=== PATIENT | female | born 1945 | race Caucasian/White ===

== ENCOUNTER 2017-09-16 15:14 | Inpatient (IN) | payer OTHER, MEDICARE ==
[2017-09-16] MEDS ORDERED: NS 500 ML IV ONE (16:13)
[2017-09-16] MEDS ORDERED: ACETAMINOPHEN 325 MG TAB PO ONE (16:17)
--- NOTE | 2017-09-16 16:21 | EDPHY ---
H & P Time Seen by Provider: 09/16/17 15:59 HPI/ROS: CHIEF COMPLAINT: Chills HISTORY OF PRESENT ILLNESS: Patient is a 72-year-old female with a history of metastatic breast cancer who presents to the emergency department with acute onset of chills. The patient states that she had a remote history of breast cancer which was treated with chemotherapy. Her cancer has returned metastasized to her spine. She recently had a fusion of T1 through T5 at [facility]. She has undergone radiation therapy and is now on hormone therapy. She is not currently undergoing chemotherapy. Her oncologist is Dr. Heart and her spine surgeon is Dr. Alvarado. Patient was in her normal state of health earlier today. However, approximately 1 hr prior to arrival she developed sudden onset of diffuse chills. She felt cold. She denies any recent cold. She has had no cough or shortness of breath. She denies abdominal pain. No nausea, vomiting or diarrhea. The patient states she has had 3 recent UTIs but no dysuria or hematuria recently. REVIEW OF SYSTEMS: My complete review of systems is negative except as mentioned in the HPI. Past Medical/Surgical History: Includes metastatic breast cancer, attention deficit hyperactivity disorder Past surgical history: Hip replacement, spinal fusion Social history: The patient is . She does not smoke. She lives in [place]. Smoking Status: Never smoked Physical Exam: Vitals noted. Tachycardic. GENERAL: Well-appearing, in no acute distress, alert. HEENT: Eyes normal to inspection, normal pharynx, no signs of dehydration. NECK: No thyromegaly, no lymphadenopathy, supple. RESPIRATORY: Clear to auscultation bilaterally, no rales, rhonchi or wheezing. CVS: Regular rate and rhythm, no rubs, murmurs, or gallops. ABDOMEN: Soft, nontender, nondistended, no organomegaly. BACK: Normal to inspection, no CVA tenderness. SKIN: Normal color, no rash, warm, dry. No pallor. EXTREMITIES: No pedal edema, no calf tenderness, no Homans sign or cords, no joint swelling. NEURO/PSYCH: Alert and oriented x3, normal mood and affect, normal motor sensory exam. No obvious cranial nerve deficit. Constitutional: Initial Vital Signs Temperature (C) 37.9 C 09/16/17 15:35 Heart Rate 125 H 09/16/17 15:35 Respiratory Rate 20 09/16/17 15:35 Blood Pressure 151/86 H 09/16/17 15:35 O2 Sat (%) 97 09/16/17 15:35 O2 Delivery Mode Room Air Allergies/Adverse Reactions: nitrofurantoin [From Macrobid] Allergy (Verified 09/16/17 15:33) Home Medications: Medication Instructions Recorded Ambien 09/16/17 Amitriptyline HCl 09/16/17 Faslodex 09/16/17 Levothyroxine 09/16/17 Verzenio 09/16/17 Zometa 09/16/17 Medical Decision Making - Diagnostics Imaging Results: Imaging Impressions Chest X-Ray 09/16/17 16:13 Impression: No focal acute cardiopulmonary process. ED Course/Re-evaluation: In the emergency department I discussed possible etiologies with the patient and family. I answered all her questions. IV was placed. Laboratory studies including blood cultures were ordered. Chest x-ray and EKG were ordered. The patient was given Tylenol 650 mg orally. Reviewed the patient's laboratory studies. White count was low at 1. Her chemistry panel is unremarkable. Urine was positive. Blood cultures and urine culture are pending. Patient was given Rocephin 1 g IV. I discussed the case with the patient answered all her questions. I discussed the case with Dr. Reddy from the hospitalist service. He will admit the patient. Differential Diagnosis: My differential includes but is not limited to bacteremia, sepsis, pneumonia, urinary tract infection, pyelonephritis, epidural abscess, postsurgical infection - Data Points Laboratory Results: Laboratory Results 09/16/17 16:15 09/16/17 16:15 09/16/17 09/16/17 09/16/17 16:55 16:15 16:15 WBC 1.00 10^3/uL L 10^3/uL (3.80-9.50) RBC 3.19 10^6/uL L 10^6/uL (4.18-5.33) Hgb 9.4 g/dL L g/dL (12.6-16.3) Hct 27.9 % L % (38.0-47.0) MCV 87.5 fL fL (81.5-99.8) MCH 29.5 pg pg (27.9-34.1) MCHC 33.7 g/dL g/dL (32.4-36.7) RDW 18.1 % H % (11.5-15.2) Plt Count 103 10^3/uL L 10^3/uL (150-400) MPV 10.1 fL fL (8.7-11.7) Neut % (Auto) Not Reported Lymph % (Auto) Not Reported Eaton % (Auto) Not Reported Eos % (Auto) Not Reported Baso % (Auto) Not Reported Nucleat RBC Rel Count 0.0 % % (0.0-0.2) Absolute Neuts (auto) Not Reported Absolute Lymphs (auto) Not Reported Absolute Monos (auto) Not Reported Absolute Eos (auto) Not Reported Absolute Basos (auto) Not Reported Absolute Nucleated RBC 0.00 10^3/uL 10^3/uL (0-0.01) Immature Gran % Not Reported Seg Neutrophils % 46 % % Band Neutrophils % 25 % % Lymphocytes % 24 % % Monocytes % 3 % % Eosinophils % 1 % % Basophils % 1 % % Immature Gran # Not Reported Absolute Seg Neuts 0.46 10^/uL L 10^/uL (1.70-6.50) Absolute Band Neuts 0.25 10^3/uL 10^3/uL (0.00-0.70) Absolute Lymphocytes 0.24 10^3/uL L 10^3/uL (1.00-3.00) Absolute Monocytes 0.03 10^3/uL L 10^3/uL (0.30-0.80) Absolute Eosinophils 0.01 10^3/uL L 10^3/uL (0.03-0.40) Absolute Basophils 0.01 10^3/uL L 10^3/uL (0.02-0.10) Platelet Estimate DECREASED L (ADEQ) Microcytic Cells 1+ H Tear Drop Cells 1+ H Oval Macrocytes 1+ H Elliptocytes 1+ H PT INR APTT VBG Lactic Acid Sodium 134 mEq/L L mEq/L (135-145) Potassium 4.2 mEq/L mEq/L (3.5-5.2) Chloride 105 mEq/L mEq/L (97-110) Carbon Dioxide 18 mEq/l L mEq/l (22-31) Anion Gap 11 mEq/L mEq/L (8-16) BUN 11 mg/dL mg/dL (7-23) Creatinine 0.6 mg/dL mg/dL (0.6-1.0) Estimated GFR > 60 Glucose 98 mg/dL mg/dL (70-100) Calcium 9.2 mg/dL mg/dL (8.5-10.4) Total Bilirubin 0.6 mg/dL mg/dL (0.1-1.4) Conjugated Bilirubin 0.3 mg/dL mg/dL (0.0-0.5) Unconjugated Bilirubin 0.3 mg/dL mg/dL (0.0-1.1) AST 30 IU/L IU/L (14-46) ALT 25 IU/L IU/L (9-52) Alkaline Phosphatase 53 IU/L IU/L (38-126) Total Protein 6.3 g/dL g/dL (6.3-8.2) Albumin 3.8 g/dL g/dL (3.5-5.0) Lipase 37 IU/L IU/L (23-300) Urine Color PALE YELLOW Urine Appearance HAZY Urine pH 8.0 H (5.0-7.5) Ur Specific Lem[place] 1.008 (1.002-1.030) Urine Protein NEGATIVE (NEGATIVE) Urine Ketones NEGATIVE (NEGATIVE) Urine Blood 1+ H (NEGATIVE) Urine Nitrate NEGATIVE (NEGATIVE) Urine Bilirubin NEGATIVE (NEGATIVE) Urine Urobilinogen NEGATIVE EU EU (0.2-1.0) Ur Leukocyte Esterase 2+ H (NEGATIVE) Urine RBC 10-15 /hpf H /hpf (0-3) Urine WBC 50-182 /hpf H /hpf (0-3) Ur Epithelial Cells NONE SEEN /lpf /lpf (NONE-1+) Urine Bacteria 3+ /hpf H /hpf (NONE SEEN) Urine Mucus TRACE /lpf /lpf (NONE-1+) Urine Glucose NEGATIVE (NEGATIVE) 09/16/17 09/16/17 16:15 16:13 WBC RBC Hgb Hct MCV MCH MCHC RDW Plt Count MPV Neut % (Auto) Lymph % (Auto) Eaton % (Auto) Eos % (Auto) Baso % (Auto) Nucleat RBC Rel Count Absolute Neuts (auto) Absolute Lymphs (auto) Absolute Monos (auto) Absolute Eos (auto) Absolute Basos (auto) Absolute Nucleated RBC Immature Gran % Seg Neutrophils % Band Neutrophils % Lymphocytes % Monocytes % Eosinophils % Basophils % Immature Gran # Absolute Seg Neuts Absolute Band Neuts Absolute Lymphocytes Absolute Monocytes Absolute Eosinophils Absolute Basophils Platelet Estimate Microcytic Cells Tear Drop Cells Oval Macrocytes Elliptocytes PT 14.1 SEC SEC (12.0-15.0) INR 1.07 (0.83-1.16) APTT 21.7 SEC L SEC (23.0-38.0) VBG Lactic Acid 1.3 mmol/L mmol/L (0.7-2.1) Sodium Potassium Chloride Carbon Dioxide Anion Gap BUN Creatinine Estimated GFR Glucose Calcium Total Bilirubin Conjugated Bilirubin Unconjugated Bilirubin AST ALT Alkaline Phosphatase Total Protein Albumin Lipase Urine Color Urine Appearance Urine pH Ur Specific Lemont Urine Protein Urine Ketones Urine Blood Urine Nitrate Urine Bilirubin Urine Urobilinogen Ur Leukocyte Esterase Urine RBC Urine WBC Ur Epithelial Cells Urine Bacteria Urine Mucus Urine Glucose Medications Given: Discontinued Medications Acetaminophen (Tylenol) 650 mg PO EDNOW ONE Stop: 09/16/17 16:18 Last Admin: 09/16/17 16:22 Dose: 650 mg Sodium Chloride (Ns) 500 mls @ 0 mls/hr IV EDNOW ONE; Wide Open PRN Reason: Protocol Stop: 09/16/17 16:14 Last Admin: 09/16/17 16:17 Dose: 500 mls Departure - Departure Disposition: [facility] Acute Clinical Impression: Chills UTI (urinary tract infection) Qualifiers: Urinary tract infection type: acute cystitis Hematuria presence: with hematuria Qualified Code(s): N30.01 - Acute cystitis with hematuria Leukopenia Qualifiers: Leukopenia type: unspecified Qualified Code(s): D72.819 - Decreased white blood cell count, unspecified Condition: Good Referrals: NONE *PRIMARY CARE P,. [Primary Care Provider] - As per Instructions
[2017-09-16 16:30] LABS: PLATELET COUNT 103 10^3/uL (150-400)
[2017-09-16 16:50] LABS: INR 1.07 (0.83-1.16); PROTIME(PATIENT) 14.1 SEC (12.0-15.0)
[2017-09-16] MEDS ORDERED: ONDANSETRON DISINTEGRATING 4 MG TAB PO PRN (17:55)
[2017-09-16] MEDS ORDERED: ONDANSETRON 4 MG/2 ML VIAL IVP PRN (17:55)
[2017-09-16] MEDS ORDERED: TEMAZEPAM 15 MG CAP PO PRN (17:55)
[2017-09-16] MEDS ORDERED: ACETAMINOPHEN 325 MG TAB PO PRN (17:55)
[2017-09-16] MEDS ORDERED: NS 1,000 ML IV SCH (18:00)
--- NOTE | 2017-09-16 18:30 | GHP ---
[f rep st] HISTORY AND PHYSICAL DATE OF ADMISSION: 09/16/2017 CHIEF COMPLAINT: Chills and shakes. HISTORY OF PRESENT ILLNESS: 72-year-old female with a history of metastatic breast cancer, on a CDK inhibitor, presents with chills. She has had recent urinary tract infection since starting treatment . She was recently in [place], treated there for a UTI with sulfa. Her symptoms have been somewhat mild, dysuria, as well as increased frequency. These symptoms got better for a few days (she was on a sulfa antibiotic), then started to slowly recur. Today, she had an episode of shaking chills. She called her oncologist who recommended that she present to the emergency department. She lives in [facility], she is visiting her daughter in [place]. PAST MEDICAL/SURGICAL HISTORY: 1. Metastatic breast cancer, initially diagnosed in 2005, status post bilateral mastectomy and chemo therapy, recent recurrence with upper thoracic spine lesions. She is now status post spinal fusion. 2. ADHD. 3. JIM. 4. TKA. 5. Silent reflux. 6. Hypothyroid. MEDICATIONS: Please see medication reconciliation. ALLERGIES: Macrobid. FAMILY HISTORY: Her aunt had breast cancer. SOCIAL HISTORY: She lives in [place]. She does not drink or smoke. REVIEW OF SYSTEMS: 10-point review of systems is conducted and is negative except per HPI. PHYSICAL EXAM: VITAL SIGNS: Blood pressure 151/86, heart rate 125, respiration rate 20, saturating at 97% on room air. Temperature is 37.9. GENERAL: The patient is a very pleasant female who is res ting comfortably, in no acute distress. HEENT: Shows her to be normocephalic, atraumatic. CARDIOVA SCULAR: Shows her to have a regular rate and rhythm. There are no murmurs, rubs, or gallops. PULMO NARY: Shows lungs clear to auscultation bilaterally. ABDOMEN: Soft. She is mildly tender to palpa tion in the suprapubic area. There is no guarding or rebound. SKIN: Shows no rash. : Shows no Dye. NEUROLOGIC: Shows her to be alert and oriented x3. She is moving all extremities. PSYCHIAT ROBERTO: Shows normal mood and affect. LABS: White count is 1.0. She has 46% segmented neutrophils, 25% bands. Lactate is 1.3, sodium is 1 34, bicarb is 18. Urinalysis shows 1+ blood, 50-182 white blood cells, 3+ bacteria. DATA: 1. I discussed this with Dr. Gomes. Will admit to med/surg. 2. I personally reviewed and interpreted her chest x-ray. This shows an upper thoracic fusion. Othe rwise there are no infiltrates. She has normal heart size. IMPRESSION AND PLAN: 72-year-old female, on Verzenio with urinary tract infection. 1. Urinary tract infection: We will treat her with Rocephin for now. Urine culture has been sent. Can taper antibiotics based on culture results. 2. Pancytopenia: This is due to her Verzenio. Certainly putting her at risk for infections. We wi ll recheck her labs tomorrow. 3. Shaking chills: Suspect due to urinary tract infection. If symptoms do not improve with Rocephi n, we will broaden differential on this. 4. Metastatic breast cancer: She is followed at the [facility]. She is getting hormona l therapy at this point. She is also on Verzenio which is a cyclin-dependent kinase inhibitor. She will follow up with her oncologist there. 5. Hypothyroid: Synthroid. 6. Attention deficit disorder: Ritalin. 7. Venous thromboembolism risk: She is high risk. I put her on Lovenox. 8. Code status: She would like to be full code, full tube. /[id number]/MODL
[2017-09-16] MEDS ORDERED: ZOLPIDEM TARTRATE 5 MG TAB PO PRN (23:00)
[2017-09-17 04:54] LABS: PLATELET COUNT 86 10^3/uL (150-400)
[2017-09-17] MEDS: LEVOTHYROXINE 100 MCG TAB PO SCH (06:30)
[2017-09-17] MEDS: ENOXAPARIN 40 MG/0.4 ML SYR SC SCH (08:33)
[2017-09-17] MEDS: ABEMACICLIB 150 MG PO SCH ×2 (08:33→21:22)
[2017-09-17] MEDS ORDERED: cefTRIAXone 1 GM in STERILE WATER INJ 10 ML IV SCH (09:00)
--- NOTE | 2017-09-17 10:16 | ASMTCMCOM ---
CM Note CM Note Notes: Chart reviewed for discharge planning purposes. 72 Year old female admitted via ED for shaking chills. Recent treatment for UTI. Breast cancer with metastasis Blood cultures positive. Needs to be determined. CM to follow. Date Signed: 09/17/2017 10:16 AM Electronically Signed By:Meenakshi Cosme RN
--- NOTE | 2017-09-17 17:54 | HOSPPROG ---
Hospitalist Progress Note Assessment/Plan: DIAGNOSES: -acute complicated urinary tract infection with E coli -acute E coli bacteremia * Sensitivities currently still pending from both blood and urine cultures but given her response overall believe this is a sensitive organism -neutropenic fever; immune compromised due to chemotherapy -acute sepsis with neutropenia, tachycardia, fever and rigors at time of admission -pancytopenia due to chemotherapy for breast cancer * Numbers all slightly worse today than yesterday, no indication for transfusions of any kind at present -metastatic breast cancer on chemotherapy Overall the patient clinically is reasonably stable today with improved vital signs and resolved fever and resolved rigors She does not have signs or symptoms of pyelonephritis Her severe neutropenia will make this slower to resolve and does increased risk of treatment failure or other complications and will need to be watched very closely PLANS: -continue inpatient care with IV antibiotics and careful management and monitoring of cell counts -await antibiotic sensitivities and adjust antibiotics as necessary -continue hydration -follow cell counts closely watching for any indication for transfusion -DVT prophylaxis does include Lovenox at this point but if platelets drop much further will need to stop that -she is scheduled to have a indwelling port placed 2 days from now. Am recommending that she delay that until she is completely resolved with this infection and she will contact her physicians in [place] for that. -had long discussion with patient regarding education. She was not ideally knowledgeable about how to monitor for and manage symptoms of infection or fever in the setting of neutropenia immune compromise. She waited at home with significant rigors for an extended appeared before presenting for assessment here at this time. Reviewed the signs and symptoms of concern related to infections and when to seek immediate care. 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: Exam: alert oriented skin warm dry color ok, good capillary refill in digits resps not labored lungs clear BSs heart regular abd soft nondistended nontender, bowel sounds present; no abdominal tenderness or mass, no flank or CVA tenderness limbs warm, no edema iv site ok Laboratory data: Slightly worse anemia and thrombocytopenia today, ANC 860 today Microbiology data: E coli is growing from blood cultures and urine culture, sensitivities pending Objective: Vital Signs Temp Pulse Resp BP Pulse Ox 37.1 C 90 16 150/74 H 90 L 09/17/17 16:10 09/17/17 16:10 09/17/17 16:10 09/17/17 16:10 09/17/17 16:10 Laboratory Results 09/17/17 04:35 09/16/17 09/17/17 09/18/17 06:59 06:59 06:59 Intake Total 750 450 Output Total 900 600 Balance -150 -150 PT 14.1 SEC (12.0-15.0) 09/16/17 16:13 INR 1.07 (0.83-1.16) 09/16/17 16:13 - Time Spent With Patient Time Spent with Patient: greater than 35 minutes Time Spent with Patient: Greater than 35 minutes spent on this patients care, greater than 50% of time spent counseling, educating, and coordinating care regarding the above mentioned plan. ICD10 Worksheet Patient Problems: Problems Problem Status Onset Chills Acute Leukopenia Acute UTI (urinary tract infection) Acute
[2017-09-17] MEDS: AMITRIPTYLINE HCL 25 MG TAB PO SCH (18:03)
--- NOTE | 2017-09-17 18:29 | PDMN ---
Medical Necessity Medical necessity: C/M review: est. > 2 MN LOS for eval and TX of acute and persistent- complicated urinary tract infection with E. coli., E.coli bacteremia, neutrapenic fever, sepsis with neutropenia, tachycardia, fever and rigors at time of admission, pancytopenia due to chemotherapy requiring ongoing IV Ceftriaxone, IV fluids, follow cell counts closely, comorbid metastatic breast cancer on chemotherapy per 09/17/2017 Hospitalist progress note.
[2017-09-18] MEDS: LEVOTHYROXINE 100 MCG TAB PO SCH (05:37)
[2017-09-18 06:54] LABS: PLATELET COUNT 97 10^3/uL (150-400)
[2017-09-18] MEDS: ABEMACICLIB 150 MG PO SCH ×2 (08:26→20:44)
[2017-09-18] MEDS: ENOXAPARIN 40 MG/0.4 ML SYR SC SCH (11:39)
--- NOTE | 2017-09-18 13:50 | ASMTCMCOM ---
CM Note CM Note Notes: Chart reviewed. Met with patient and her to review dc plan of care. Normally reside in [place] and was visiting daughter in [place] when felt ill coming into our ED. She recently returned form a trip to [place]. She is being treated for acute sepsis. She is up about her room and normally independent. No current needs identified CM available should needs arise. Date Signed: 09/18/2017 01:49 PM Electronically Signed By:Meenakshi Cosme RN
--- NOTE | 2017-09-18 16:45 | HOSPPROG ---
Hospitalist Progress Note Assessment/Plan: DIAGNOSES: -acute complicated urinary tract infection with E coli -acute E coli bacteremia -neutropenic fever; immune compromised due to chemotherapy -acute sepsis with neutropenia, tachycardia, fever and rigors at time of admission -pancytopenia due to chemotherapy for breast cancer * Worsening of neutropenia today, otherwise stable counts, no indications for transfusion -metastatic breast cancer on chemotherapy Overall the patient clinically is reasonably stable today with improved vital signs and resolved fever and resolved rigors She does not have signs or symptoms of pyelonephritis Her severe neutropenia will make this slower to resolve and does increased risk of treatment failure or other complications and will need to be watched very closely PLANS: -continue inpatient care with IV antibiotics and careful management and monitoring of cell counts -continue hydration -follow cell counts closely watching for any indication for transfusion -DVT prophylaxis does include Lovenox at this point but if platelets drop much further will need to stop that -will review with Infectious Disease project management consultant regarding timing of changed to oral medications and discharge, consider 1-2 days may be a good timing if she stays stable -she is scheduled to have a indwelling port placed 2 days from now. Am recommending that she delay that until she is completely resolved with this infection and she will contact her physicians in [place] for that. -had long discussion with patient regarding education. She was not ideally knowledgeable about how to monitor for and manage symptoms of infection or fever in the setting of neutropenia immune compromise. She waited at home with significant rigors for an extended appeared before presenting for assessment here at this time. Reviewed the signs and symptoms of concern related to infections and when to seek immediate care. 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, my review: Exam: alert oriented skin warm dry color ok, good capillary refill in digits resps not labored lungs clear BSs heart regular abd soft nondistended nontender, bowel sounds present; no abdominal tenderness or mass, no flank or CVA tenderness limbs warm, no edema iv site ok Laboratory data: Stable neutropenia and anemia, ANC down to 400 today Microbiology data: E coli is growing from blood cultures and urine culture, sensitive to Rocephin which she is on, also sensitive to Levaquin which will be a good oral transition Objective: Vital Signs Temp Pulse Resp BP Pulse Ox 36.8 C 96 18 148/88 H 95 09/18/17 15:05 09/18/17 15:05 09/18/17 15:05 09/18/17 15:05 09/18/17 15:05 Laboratory Results 09/18/17 06:37 09/18/17 06:37 09/17/17 09/18/17 09/19/17 06:59 06:59 06:59 Intake Total 700 Output Total 600 500 Balance 100 -500 PT 14.1 SEC (12.0-15.0) 09/16/17 16:13 INR 1.07 (0.83-1.16) 09/16/17 16:13 - Time Spent With Patient Time Spent with Patient: greater than 35 minutes Time Spent with Patient: Greater than 35 minutes spent on this patients care, greater than 50% of time spent counseling, educating, and coordinating care regarding the above mentioned plan. ICD10 Worksheet Patient Problems: Problems Problem Status Onset Chills Acute Leukopenia Acute UTI (urinary tract infection) Acute
[2017-09-18] MEDS: AMITRIPTYLINE HCL 25 MG TAB PO SCH (18:39)
[2017-09-18] MEDS ORDERED: MAGNESIUM OXIDE 400 MG PO SCH (21:00)
[2017-09-19] MEDS: LEVOTHYROXINE 100 MCG TAB PO SCH (05:40)
[2017-09-19 06:01] VITALS: RESP 16
[2017-09-19 08:26] VITALS: BP 118/76; PULSE 74; TEMP 97.8; O2SAT 95
[2017-09-19] MEDS: ABEMACICLIB 150 MG PO SCH (08:38)
[2017-09-19] MEDS ORDERED: CAT S CLAW PO SCH (09:00)
[2017-09-19] MEDS ORDERED: [UNRECOGNIZED DRUG - OTHER] PO SCH (09:00)
[2017-09-19] MEDS ORDERED: [UNRECOGNIZED DRUG - OTHER] PO SCH (09:00)
[2017-09-19] MEDS ORDERED: LACTOBACILLUS ACIDOPHILUS PO SCH (09:00)
[2017-09-19] MEDS ORDERED: BIFIDOBACTERIUM ANIMALIS PO SCH (09:00)
[2017-09-19] MEDS ORDERED: [UNRECOGNIZED DRUG - OTHER] PO SCH (09:00)
[2017-09-19 10:57] LABS: PLATELET COUNT 127 10^3/uL (150-400)
--- NOTE | 2017-09-19 13:09 | PDDCSUM ---
Discharge Summary Discharge Summary: DISCHARGE DIAGNOSES: -neutropenic fever -early sepsis, resolved -complicated urinary tract infection with E coli -E coli bacteremia -pancytopenia from cancer therapy -metastatic breast cancer on therapy HOSPITAL COURSE SUMMARY: This patient who has metastatic breast cancer is taking faslodex and varenzio from which she has neutropenia. The patient developed some bladder symptoms and chills and presented to our hospital where she was diagnosed with acute febrile illness caused by E coli urinary tract infection complicated by E coli bacteremia. She had borderline criteria for early sepsis. She was admitted to the hospital and treated with IV antibiotics and fluid resuscitation. All signs of impending sepsis resolve quite rapidly, her fevers resolved quickly, and she has resolved all of her other symptoms is now doing quite well without any signs of complication. She is eating and drinking well, has had no symptoms or signs of pyelonephritis or other urinary complications. She has remained neutropenic with her ANC at 400 today. Is not clear to me from talk to her exactly when to expect her white blood cell count come back up. Due to her neutropenia and bacteremia recommending a total of 14 days of antibiotic therapy for this infection. That will and 10 days from now on the 29 of September. Beyond that it will need to be determine where her white blood cell count is in whether she will need a) any prophylactic antibiotics or antivirals b) any change in cancer therapy regimen c) any treatment trying put her white cell count up. She will be in contact with her oncologist in [place] to determine this and I recommended she get a blood test around a 8-9 days from now and review this with her oncologist. Also have her follow up with her primary care physician to ensure she is doing well with resolution of her current infection. PENDING TEST RESULTS: None MEDICATION CHANGES: Addition of Levaquin for 750 mg daily through September 29 FOLLOW-UP PLAN: I have arranged an appointment with her with 7 days from now for primary care follow-up She will contact her oncologist for further management as described above Greater than 35 minutes bedside and care coordination time today
[2017-09-19] MEDS: ENOXAPARIN 40 MG/0.4 ML SYR SC SCH (14:28)
== END 2017-09-19 15:01 | disposition home or self-care (01) | DRG 871 ==
LOC: F1N 18:19 → OBSVTOIN 09-17 18:18
PROVIDERS: ADMIT Student in an Organized Health Care Education/Training Program; ATTEND Student in an Organized Health Care Education/Training Program
DX: A41.51 Sepsis due to Escherichia coli [E. coli] (principal); D61.810 Antineoplastic chemotherapy induced pancytopenia; N39.0 Urinary tract infection, site not specified; C79.51 Secondary malignant neoplasm of bone; D70.9 Neutropenia, unspecified; Z96.649 Presence of unspecified artificial hip joint; Z96.659 Presence of unspecified artificial knee joint; E03.9 Hypothyroidism, unspecified; F98.8 Other specified behavioral and emotional disorders with onset usually occurring in childhood and adolescence; Z85.3 Personal history of malignant neoplasm of breast; Z90.13 Acquired absence of bilateral breasts and nipples; Z98.1 Arthrodesis status
CPT/HCPCS: G0378; J0696; J1650